=== PATIENT | male | born 1995 ===

== ENCOUNTER 2017-12-09 15:35 | Emergency (ER) | payer SELFPAY ==
[2017-12-09 16:24] VITALS: BP 115/72
--- NOTE | 2017-12-09 17:05 | UC ---
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 Hurts while running, and around the right patella, denies radiation. - History of Current Complaint Chief Complaint: UCLowerExtremity Stated Complaint: KNEE PAIN Time Seen by Provider: 12/09/17 16:31 Hx Obtained From: Patient Onset/Duration: Lasting Days Severity Initially: Moderate Pain Intensity: 3 Character: Sharp, Aching - Allergies/Home Medications Allergies/Adverse Reactions: Allergies Allergy/AdvReac Type Severity Reaction Status Date / Time No Known Allergies Allergy Verified 12/09/17 16:24 PMH/Surg Hx/FS Hx/Imm Hx Previously Healthy: Yes - Surgical History Surgical History: None - Social History Alcohol Use: Weekly Substance Use Type: None Smoking Status (MU): Never Smoked Tobacco Review of Systems Constitutional: Negative Skin: Negative Eyes: Negative ENT: Negative Respiratory: Negative Cardiovascular: Negative Gastrointestinal: Negative Genitourinary: Negative Motor: Negative Neurovascular: Negative Musculoskeletal: Other: - right knee pain Neurological: Negative Psychological: Negative All Other Systems Reviewed And Are Negative: Yes Physical Exam Triage Information Reviewed: Yes Vital Signs: Initial Vital Signs Temp 37.1 C 12/09/17 16:20 Pulse 72 12/09/17 16:20 Resp 16 12/09/17 16:20 BP 115/72 12/09/17 16:20 Pulse Ox 98 12/09/17 16:20 Eye Exam: Normal ENT Exam: Normal Dental Exam: Normal Neck exam: Normal Neck: Positive: 1 Respiratory Exam: Normal Cardiovascular Exam: Normal Abdominal Exam: Normal Musculoskeletal: Positive: Other: - right medial and lateral peripatellar tenderness, mild to moderate. No bony tenderness, NVI Neurological Exam: Normal Psychological Exam: Normal Skin Exam: Normal Knee Pain Course/Dx - Course Course Of Treatment: RICE, NSAIDS, knee brace on right while running. - Differential Dx/Diagnosis Differential Diagnosis/HQI/PQRI: [place]-Schlatter Disease, Patellofemoral Syndrome, Tendonitis Provider Diagnoses: right tony-patellar strain Discharge - Discharge Plan Condition: Stable Disposition: HOME Prescriptions: Naproxen Sodium [Naproxen Sodium 500 MG TAB] 500 mg PO BID 10 Days #20 tab Patient Education Materials: Patellar Tendinitis (ED) Referrals: No Primary Care Phys,NOPCP [Primary Care Provider] - Additional Instructions: Wear knee brace while running, Rest, ICE, Elevation and Antiinflammatories as needed. If pain continues in spite of above treatment consult with Orthopedics.
== END 2017-12-09 17:00 | disposition home or self-care (01) ==
LOC: UCEAST 15:35
DX: S86.811A Strain of other muscle(s) and tendon(s) at lower leg level, right leg, initial encounter (principal); X50.3XXA Overexertion from repetitive movements, initial encounter; Y93.02 Activity, running; Y92.215 Trade school as the place of occurrence of the external cause
CPT/HCPCS: 99202; G0463

== ENCOUNTER 2018-09-01 17:02 | Emergency (ER) | payer BC, OTHER ==
--- NOTE | 2018-09-01 18:53 | UC ---
Lower Extremity/Ankle HPI - HPI Summary HPI Summary: 23 y/o male presents to the urgent care c/o left great toe w/ ingrown toenail. Pt reports symptoms started 2.5 weeks ago s/p hiking w/ mild redness. He noticed some yellowish drainage 2 days ago. he has soak his toe on Epson salt and yesterday he cut his toenail on the medial aspect where the swelling is located. This morning he woke up w/ a red streak over this toe. He has a similar Ingrown toenail about 6 years ago for which he end up w/ ingrown toenail procedure done. Pain is 5/10 at touch, warm to touch and swelling. He has FROM of great toe. Pt denies numbness over the great toe, fever, SOB, chest pain, abdominal pain, N/V/D. - History of Current Complaint Chief Complaint: UCLowerExtremity Stated Complaint: FOOT COMPLAINT Time Seen by Provider: 09/01/18 18:35 Hx Obtained From: Patient Onset/Duration: Gradual Onset, Lasting Weeks - 2.5 weeks, Still Present, Worse Since - 2 days Severity Initially: Mild Severity Currently: Moderate Pain Intensity: 5 Pain Scale Used: 0-10 Numeric Aggravating Factor(s): Ambulation Alleviating Factor(s): Rest, Elevation, OTC Meds Able to Bear Weight: Yes - Risk Factors Gout Risk Factors: Negative DVT Risk Factors: Negative Septic Arthritis Risk Factor: Negative - Allergies/Home Medications Allergies/Adverse Reactions: Allergies Allergy/AdvReac Type Severity Reaction Status Date / Time No Known Allergies Allergy Verified 09/01/18 17:12 PMH/Surg Hx/FS Hx/Imm Hx Previously Healthy: Yes - Pt denies PMHX - Surgical History Surgical History: None - Family History Known Family History: Positive: None - Pt denies FMHX - Social History Occupation: Employed Full-time Lives: With Family Alcohol Use: Occasionally Substance Use Type: None Smoking Status (MU): Never Smoked Tobacco Review of Systems All Other Systems Reviewed And Are Negative: Yes Constitutional: Positive: Negative Skin: Positive: Other - left great toe ingrown toenail w/ sweeling, redness and yellowish drainage Eyes: Positive: Negative ENT: Positive: Negative Respiratory: Positive: Negative Cardiovascular: Positive: Negative Gastrointestinal: Positive: Negative Genitourinary: Positive: Negative Motor: Positive: Negative Neurovascular: Positive: Negative Musculoskeletal: Positive: Other: - left great toe pain s/p ingrown toenail Neurological: Positive: Negative Psychological: Positive: Negative Is Patient Immunocompromised?: No Physical Exam - Summary Physical Exam Summary: Vital Signs Reviewed: Yes General: well developed, well nourished male sitting in the examining table w/o any apparent distress Eye Exam: Normal Eyes: Positive: Conjunctiva Clear - PERRLA, EOMI, fundi grossly normal ENT: Positive: Normal ENT inspection, Hearing grossly normal, Pharynx normal, TMs normal Neck: Positive: Supple, Nontender, No Lymphadenopathy Respiratory: Positive: Chest non-tender, Lungs clear, Normal breath sounds, No respiratory distress Cardiovascular: Positive: RRR, No Murmur, Pulses Normal, Brisk Capillary Refill Abdomen Description: Positive: Nontender, No Organomegaly, Soft. Negative: CVA Tenderness (R), CVA Tenderness (L) Bowel Sounds: Positive: Present Musculoskeletal: Positive: Strength Intact, ROM Intact, No Edema Neurological: Positive: Alert, Muscle Tone Normal Psychological Exam: Normal Skin: Positive: lateral aspect of left great toe w/ moderated swelling, surrounding erythema over the base of great toenail, fluctuating w/ granulation tissue tender to palpation and mild yellowish drainage observed, warm to touch, FROM of the left great toe. Sensation WNL, capillary refill brisk, pulses intact. Triage Information Reviewed: Yes Vital Signs: Initial Vital Signs Temp 97.7 F 09/01/18 17:08 Pulse 70 09/01/18 17:08 Resp 18 09/01/18 17:08 BP 132/84 09/01/18 17:08 Pulse Ox 100 09/01/18 17:08 Lower Extremity Course/Dx - Course Course Of Treatment: 23 y/o male presents to the urgent care c/o left great toe w/ ingrown toenail. Pt reports symptoms started 2.5 weeks ago s/p hiking w / mild redness. He noticed some yellowish drainage 2 days ago. he has soak his toe on Epson salt and yesterday he cut his toenail on the lateral aspect where the swelling is located. This morning he woke up w/ a red streak over this toe. He has a similar Ingrown toenail about 6 years ago for which he end up w/ ingrown toenail procedure done. Pain is 5/10 at touch, warm to touch and swelling. He has FROM of great toe. Pt denies numbness over the great toe, fever , SOB, chest pain, abdominal pain, N/V/D. Hx obtained. Pt w/ a lateral aspect of left big toe w/ ingrown toe nail on examination. Ingrown toenail removal procedure:The procedure was explained and consent obtained. [place] protocol performed. Left great toe soak in water x 15min, and then cleaned w/ Iodine swabs 3X. Digital nerve block procedure performed with 2mL of [place] 1% with good anesthesia obtained. Sterile drape and prep were done. Pt already removed the lateral side of toenail. I&D performed at the lateral side w/ paronychia and mild pus and blood drained. [place] Culture sent to lab to r/o MRSA. Granulation tissue removed from lateral side and Silver nitrate stick applied. topical Bacitracin applied over the area. Wound covered with sterile dressing. The patient tolerated the procedure well.Post -op shoe given. Pt Rx Keflex PO and Bacitracin oint. Pt Rx Keflex PO and Bacitracin and [place] pakts as directed below. Also advised to f/u w/ Cushion Maker DR Nur in 2 -3 days for further management. PT understood and agreed with D/C instructions. Pt Left the clinic ambulating A&OX3 - Differential Dx/Diagnosis Differential Diagnosis/HQI/PQRI: Cellulitis, Infection, Subungual Hematoma, Other - paronychia, ingrown toenail Provider Diagnosis: Ingrown nail of great toe of left foot Discharge - Sign-Out/Discharge Documenting (check all that apply): Patient Departure - D/C home All imaging exams completed and their final reports reviewed: No Studies - Discharge Plan Condition: Stable Disposition: HOME Prescriptions: Bacitracin OINTMENT* 1 applic TOPICAL BID #1 tube Calcium Acetate/Aluminum Sulf [[place] Powder Packet] 1 each TP BID #1 powd.pack Cephalexin CAP* [Keflex CAP*] 500 mg PO QID #27 cap Patient Education Materials: Ingrown Nail (ED) Referrals: [facility] [[place]] - 3 Days Kwabena Nur DPM [Doctor of Podiatric Medicine] - 2 Days Additional Instructions: 1-Please take full course of antibiotic to avoid resistance. first dose given today. Keep wound clean and dry with a sterile dressing. Apply bacitracin topical as directed 2- F/u w/ Cushion Maker appt Dr Nur on your appt on Thursday wound check up in 2 days with your PCP or at the urgent care for removal of packing 3-. Take Ibuprofen PO q6-8hrs prn for pain or swelling. Keep you foot elevated to decrease swelling. Use the post-op shoe to avoid flexion of toe. 4-If you develop fever or redness despite antibiotic please go to the ER immediately or return to the Urgent care. 5- Wound culture sent to lab, if any abnormal result you will receive a call from us. - Billing Disposition and Condition Condition: STABLE Disposition: Home
[2018-09-01] MEDS ORDERED: Lidocaine 1%* 5 ML VIAL INJ ONE (19:03)
[2018-09-01] MEDS ORDERED: Silver Nitrate/Potassium Nitr* 1 EA STICK TOPICAL ONE ×2 (19:05→20:19)
[2018-09-01 19:16] VITALS: BP 128/83
[2018-09-01] MEDS ORDERED: Silver Nitrate/Potassium Nitr* 1 EA STICK ONE (19:58)
[2018-09-01] MEDS ORDERED: Cephalexin CAP* 500 MG PO ONE (20:11)
--- NOTE | 2018-09-02 08:39 | UC ---
- Progress Note Progress Note: There were no x-rays ordered September 01, 2018 therefore there is no discrepancy Course/Dx - Diagnoses Provider Diagnoses: Ingrown nail of great toe of left foot Discharge - Sign-Out/Discharge Documenting (check all that apply): Patient Departure All imaging exams completed and their final reports reviewed: No Studies - Discharge Plan Condition: Stable Disposition: HOME Prescriptions: Bacitracin OINTMENT* 1 applic TOPICAL BID #1 tube Calcium Acetate/Aluminum Sulf [[place] Powder Packet] 1 each TP BID #1 powd.pack Cephalexin CAP* [Keflex CAP*] 500 mg PO QID #27 cap Patient Education Materials: Ingrown Nail (ED) Referrals: [facility] [place] [facility] [Outside] - 3 Days Kwabena Nur DPM [Doctor of Podiatric Medicine] - 2 Days Additional Instructions: 1-Please take full course of antibiotic to avoid resistance. first dose given today. Keep wound clean and dry with a sterile dressing. Apply bacitracin topical as directed 2- F/u w/ Digital Cartographer appt Dr Nur on your appt on Thursday wound check up in 2 days with your PCP or at the urgent care for removal of packing 3-. Take Ibuprofen PO q6-8hrs prn for pain or swelling. Keep you foot elevated to decrease swelling. Use the post-op shoe to avoid flexion of toe. 4-If you develop fever or redness despite antibiotic please go to the ER immediately or return to the Urgent care. 5- Wound culture sent to lab, if any abnormal result you will receive a call from us. - Billing Disposition and Condition Condition: STABLE Disposition: Home
== END 2018-09-01 20:30 | disposition home or self-care (01) ==
LOC: UCEAST 17:02
DX: L60.0 Ingrowing nail (principal)
CPT/HCPCS: 11000; 87070; 87205; 87640; 87641; 99212; A9270-GY; G0463